=== PATIENT | male | born 1950 | race Caucasian/White ===

== ENCOUNTER 2017-02-07 20:26 | Emergency (ER) | payer OTHER, MEDICARE ==
[2017-02-07 20:32] VITALS: BP 144/81
--- NOTE | 2017-02-07 21:06 | EDM.PDOC ---
ED HPI GENERAL MEDICAL PROBLEM - General Chief Complaint: General Stated Complaint: CHOKED ON FOOD Time Seen by Provider: 02/07/17 20:31 Source of Information: Reports: Patient, Family (), RN Notes Reviewed History Limitations: Reports: No Limitations - History of Present Illness INITIAL COMMENTS - FREE TEXT/NARRATIVE: The patient and his states that they were eating fried rice, without meat, at [employer]. The patient states that he developed a sudden onset of sensation of throat tightness and inability to breathe. He tried to drink some water, but vomited some clear phlegm. He got up and waved his arms, prompting a hook and eye attacher and other diners to perform the Heimlich maneuver on him. This caused expulsion of some rice, after which the patient was able to breathe. Here in the ED, the patient still has a sensation of some throat irritation, and coughs on occasion, although he states that his symptoms appear to be resolving. He was given some water to drink, which went down without difficulty. No prior similar symptoms. The patient's PCP is Dr. Geoffrey Mcgowan. - Related Data Allergies Allergy/AdvReac Type Severity Reaction Status Date / Time No Known Allergies Allergy Verified 02/07/17 20:33 Past Medical History Cardiovascular History: Reports: High Cholesterol, Hypertension - Past Surgical History HEENT Surgical History: Reports: Naso-Sinus Surgery (Deviated septum) GI Surgical History: Reports: Appendectomy, Colonoscopy Neurological Surgical History: Reports: Lumbar Spine Social & Family History - Family History Family Medical History: Noncontributory - Tobacco Use Smoking Status *Q: Never Smoker - Caffeine Use Caffeine Use: Reports: Coffee, Soda, Tea - Alcohol Use Alcohol Use History: Yes Alcohol Use Frequency: Socially - Recreational Drug Use Recreational Drug Use: No - Living Situation & Occupation Living situation: Reports: , with Spouse 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[employer]) ED ROS GENERAL - Review of Systems Review Of Systems: See Below Constitutional: Reports: No Symptoms HEENT: Reports: No Symptoms Respiratory: Reports: No Symptoms Cardiovascular: Reports: No Symptoms Endocrine: Reports: No Symptoms GI/Abdominal: Reports: No Symptoms : Reports: No Symptoms Musculoskeletal: Reports: No Symptoms Skin: Reports: No Symptoms Neurological: Reports: No Symptoms Psychiatric: Reports: No Symptoms Hematologic/Lymphatic: Reports: No Symptoms Immunologic: Reports: No Symptoms ED EXAM, GENERAL - Physical Exam Exam: See Below Exam Limited By: No Limitations General Appearance: Alert, WD/WN, No Apparent Distress Eye Exam: Bilateral Eye: Normal Inspection Ears: Normal External Exam, Hearing Grossly Normal Nose: Normal Inspection, Normal Mucosa, No Blood Throat/Mouth: Normal Inspection, Normal Lips, Normal Teeth, Normal Gums, Normal Oropharynx (No oropharyngeal swelling or erythema), Normal Voice, No Airway Compromise Head: Atraumatic, Normocephalic Neck: Normal Inspection, Full Range of Motion Respiratory/Chest: No Respiratory Distress, Lungs Clear, Normal Breath Sounds, No Accessory Muscle Use Cardiovascular: Normal Peripheral Pulses, Regular Rate, Rhythm, No Gallop, No JVD, No Murmur, No Rub Neurological: Alert, Oriented, Normal Cognition, No Motor/Sensory Deficits Psychiatric: Normal Affect Skin Exam: Warm, Dry, Intact, Normal Color, No Rash Course - Vital Signs Last Recorded V/S: Last Vital Signs Temp 36.1 C 02/07/17 20:30 Pulse 87 02/07/17 20:30 Resp 18 02/07/17 20:30 BP 144/81 H 02/07/17 20:30 Pulse Ox 100 02/07/17 20:30 - Re-Assessments/Exams Free Text/Narrative Re-Assessment/Exam: 02/07/17 21:00 Based on the patient's history and physical examination, I believe that the patient aspirated a small amount of fried rice, or a component of the fried rice , which caused laryngeal spasm and the sensation that he could not breathe. The Heimlich maneuver was applied, causing the patient to expel the rice and restore his breathing. He is still coughing on occasion. He is hemodynamically stable, with a benign physical exam, including no oropharyngeal edema, and clear lungs on auscultation. His oxygen saturation is 97% on room air. The patient is able to swallow water without difficulty at this time. Clinically , I do not suspect an impacted esophageal food bolus. Additionally, while the patient stated that he felt some throat tightness, I do not see any evidence for an allergic reaction. His symptoms are resolving, despite no treatment. Departure - Departure Time of Disposition: 21:03 Disposition: Home, Self-Care 01 Condition: Good Clinical Impression: Aspiration of food - Discharge Information Referrals: Geoffrey Carrasquillo MD [Physician] - Forms: ED Department Discharge Additional Instructions: You were seen in the emergency room after developing a choking sensation while eating fried rice venancio. Based on your history and physical examination, it is MOST LIKELY that you accidentally inhaled some rice or small amount of food into your windpipe, causing spasm of your vocal cords, causing the sensation of not being able to breathe. The food has since been coughed out, however, may have caused some irritation that will continue to bother you tonight. We would expect that your symptoms will have resolved completely by the morning. Please notify Dr. Mcgowan of venancio's ER visit. If any other problems, please do not hesitate to return to the ER.
== END 2017-02-07 21:17 | disposition home or self-care (01) ==
LOC: JD.ED 20:26
DX: T17.920A Food in respiratory tract, part unspecified causing asphyxiation, initial encounter (principal); I10 Essential (primary) hypertension; E78.00 Pure hypercholesterolemia, unspecified; Z90.49 Acquired absence of other specified parts of digestive tract; X58.XXXA Exposure to other specified factors, initial encounter
CPT/HCPCS: 99282; 99283